=== PATIENT | female | born 1990 | race African-American/Black ===

== ENCOUNTER 2017-06-04 20:24 | Inpatient (IN) ==
--- NOTE | 2017-06-04 21:54 | Emergency Department Note ---
Arrival - Arrival Chief Complaint: Abdominal / Flank Pain Stated Complaint: VOMITING/STOMACH PAIN ED Nursing Triage Note: Pt to triage with c/o RUQ pain. Pt states when she press on it let go it hurts. Pt also c/o n/v that was green today. Mode of Arrival: Ambulatory Time Seen by Provider: 06/04/17 21:51 - History of Present Illness HPI Narrative: This is a 26-year-old female of descent with known Alla lithiasis documented in September 2016 while she was who presents with 3 days of right upper quadrant abdominal pain without fever but with vomiting and nausea. The patient has had occasional gallbladder attacks with this attack is lasted for 3 days. Allergies/Adverse Reactions: Allergies Allergy/AdvReac Type Severity Reaction Status Date / Time No Known Allergies Allergy Verified 06/04/17 20:41 Review of System - Review of System Constitutional: Absent: fever, night sweats Eyes: Absent: redness, vision change Head/Ears/Nose/Throat: Absent: epistaxis, nasal drainage Respiratory: Absent: respiratory distress, wheezing Cardiovascular: Absent: dyspnea on exertion, orthopnea Gastrointestinal: Absent: diarrhea, constipation Genitourinary female: Absent: dyspareunia, frequency Musculoskeletal: Absent: joint swelling, lower back pain Skin: Absent: change in color, change in hair/nails Neurological: Absent: numbness, paresthesias Psychiatric: Absent: suicidal thoughts, homicidal thoughts Endocrine: Absent: heat intolerance, polydipsia Hematological/Lymphatic: Absent: easy bruising, lymphadenopathy Allergic/Immunologic: Absent: urticaria, itchy eyes Medical,Surgical,& Family Hx - Medical History Psychological: History of: Depression Reproductive: No history of: Ectopic , Complication - Surgical History HEENT Surgeries: Surgical HX of: Tonsilectomy & Adenoidectomy Reproductive Surgeries: Patient denies;: Section - Family History Family History: Reports;: Family Diabetes (mom) Denies;: Family Anesthesia Reaction, Family Cancer, Family Heart Disease, Family Hypertension, Family Psychiatric Problems, Family Stroke - Social History Smoking Status: Current every day smoker Frequency of Alcohol Use: None Type of Drug Use: None Exam Vital Signs: Vital Signs Temperature 98.3 F 06/04/17 20:38 Pulse Rate 74 06/04/17 20:38 Respiratory Rate 18 06/04/17 20:38 Blood Pressure 151/80 06/04/17 20:38 O2 Sat by Pulse Oximetry 100 06/04/17 20:38 - Head Head exam: Present: atraumatic, normocephalic - Eye Eye exam: Present: PERRL, EOMI - ENT ENT exam: Present: normal exam - Neck Neck exam: Present: normal inspection - Chest Chest inspection: Present: normal inspection - Respiratory Respiratory exam: Present: normal lung sounds bilaterally - Cardiovascular Cardiovascular exam: Present: regular rate, normal rhythm - Abdominal Exam Abdominal exam: Present: other (Tenderness in the right upper quadrant without guarding or rebound) - Extremities Exam Extremities exam: Present: normal inspection, full ROM - Back Exam Back exam: Present: normal inspection, full ROM - Neurological Exam Neurological exam: Present: alert, oriented X3
[2017-06-04] MEDS ORDERED: HYDROmorphone 2 MG/1 ML VIAL IV STA (21:58)
[2017-06-04] MEDS ORDERED: ONDANSETRON 4 MG/2 ML VIAL IV STA (21:59)
[2017-06-04 22:05] LABS: Basophils % 0.9 % (0.0-0.8); Eosinophils % 0.7 % (0.00-10.9); Hematocrit 36.4 VOL% (35.7-47.0); Hemoglobin 12.4 GM/DL (12.0-16.0); Immature Granulocytes % 0.2 %; Immature Granulocytes Absolute 0.01 #; Lymphocytes # 1.3 10*3/uL (1.4-4.0); Mean Corpuscular HGB Conc 34.1 GM/DL (32-36); Mean Corpuscular Hemoglobin 29 PG (27-34); Mean Platelet Volume 10.7 FL (9.6-12.0); Monocytes # 0.3 10*3/uL (0.11-0.8); Monocytes % 7.3 % (1.7-12.7); Neutrophils # 2.7 10*3/uL (1.4-7.4); Neutrophils % 61.9 % (38.7-73.9); Platelet Count 239 T/CUMM (130-400); Red Blood Count 4.28 MC/CUMM (3.8-5.5); Red Cell Distribution Width 14.4 % (9.3-17.3); White Blood Count 4.4 T/CUMM (4-12)
[2017-06-04 22:23] LABS: Albumin 3.9 G/DL (3.4-5.0); Bilirubin,Total 1.2 MG/DL (0.2-1.0); Osmolality,Calculated 283.1 MOS/KG (273-304); Potassium 3.7 MMOL/L (3.5-5.1); Total Protein 6.7 G/DL (6.4-8.3)
[2017-06-04] MEDS ORDERED: ONDANSETRON 4 MG/2 ML VIAL ONE (22:28)
[2017-06-04] MEDS ORDERED: HYDROmorphone 2 MG/1 ML VIAL ONE (22:29)
--- NOTE | 2017-06-05 00:12 | Hospitalist History & Physical ---
Assessment and Plan (1) Acute cholecystitis Status: Acute Current Visit: Yes (2) History of cholelithiasis Status: Acute Current Visit: Yes (3) Elevated transaminase level Status: Acute Assessment and plan: We will plan for this patient will be admitting her to our service. We will trend out her transaminases. Consult GI to see if they think that she would benefit from ERCP and consult surgery. We will start her on some Levaquin and Flagyl secondary to her having fever. Repeat labs in the morning. Discussed the need for her to stop smoking. Greater than 3 minutes was spent spent on that subject. Current Visit: Yes History of Present Illness Chief complaint: Abdominal pain History of present illness: Ms. Fairbanks is a 26 year old female with past medical history significant for cholelithiasis is been experiencing abdominal pain off and on for the past several months. Apparently discovered that she had gallstones when she was . She delivered her baby in February. Ever since then she has been having these spells where she has excruciating abdominal pain that radiates to her back and then her symptoms will resolve. Patient reports that her symptoms this time started 3 days ago. The pain seem like it was worse than usual. She has been throwing up bile. She came to our hospital and found that she had had elevated transaminases I was consulted to admit her. Her CT scan and abdominal ultrasound have been reviewed and it appears that she has acute cholecystitis. Allergies Allergy/AdvReac Type Severity Reaction Status Date / Time No Known Allergies Allergy Verified 06/04/17 20:41 Medical,Surgical,& Family Hx - Medical History Psychological: History of: Depression Gastrointestinal: History of: GI Problems Reproductive: No history of: Ectopic , Complication - Surgical History HEENT Surgeries: Surgical HX of: Tonsilectomy & Adenoidectomy Reproductive Surgeries: Patient denies;: Section - Family History Family History: Reports;: Family Diabetes (mom) Denies;: Family Anesthesia Reaction, Family Cancer, Family Heart Disease, Family Hypertension, Family Psychiatric Problems, Family Stroke - Social History Smoking Status: Current every day smoker Frequency of Alcohol Use: None Type of Drug Use: None 12 point system: reviewed and no additional remarkable complaints except as stated Exam - Constitutional Vitals: Period Temp Pulse Resp BP Sys/Choi Pulse Ox Last 24 Hr 98.3 F 74 18 151/80 100 General appearance: over weight - Head Head exam: Present: normal inspection - Eye Eye exam: Present: EOMI Pupils: Present: ZION - ENT ENT exam: Present: normal exam - Neck Neck exam: Present: normal inspection - Respiratory Respiratory exam: Present: clear to auscultation bilaterally - Cardiovascular Cardiovascular exam: Present: regular rate and rhythm - GI/Abdominal GI/Abdominal exam: Present: hypoactive bowel sounds, tenderness (Diffusely but particularly right upper quadrant). Absent: rebound - Extremities Exam Extremities exam: Present: normal inspection - Back Exam Back exam: Present: normal inspection Results - Labs CBC & BMP: 06/04/17 21:14 06/04/17 21:14
[2017-06-05] MEDS: ONDANSETRON 4 MG/2 ML VIAL IV PRN ×2 (01:27→20:26)
[2017-06-05] MEDS: SODIUM CHLORIDE 0.9% 1,000 ML IV SCH ×2 (01:28→16:06)
[2017-06-05] MEDS ORDERED: LEVOFLOXACIN INJ 500 MG in PREMIX 1 EACH IV SCH (02:00)
[2017-06-05] MEDS: metroNIDAZOLE INJ 500 MG in PREMIX 1 EACH IV SCH ×2 (03:37→09:00)
[2017-06-05 04:48] LABS: Eosinophils # 0.1 10*3/uL (0.0-0.87); Eosinophils % 1.8 % (0.00-10.9); Hematocrit 35.9 VOL% (35.7-47.0); Hemoglobin 12.1 GM/DL (12.0-16.0); Immature Granulocytes % 0.3 %; Immature Granulocytes Absolute 0.01 #; Lymphocytes # 1.9 10*3/uL (1.4-4.0); Lymphocytes % 48.1 % (21.3-54.2); Mean Corpuscular HGB Conc 33.7 GM/DL (32-36); Mean Corpuscular Hemoglobin 29 PG (27-34); Mean Corpuscular Volume 85.5 FL (87-102); Monocytes # 0.3 10*3/uL (0.11-0.8); Monocytes % 8.7 % (1.7-12.7); Neutrophils # 1.6 10*3/uL (1.4-7.4); Neutrophils % 40.1 % (38.7-73.9); Platelet Count 226 T/CUMM (130-400); Red Cell Distribution Width 14.2 % (9.3-17.3); White Blood Count 3.9 T/CUMM (4-12)
[2017-06-05 05:41] LABS: Albumin 3.4 G/DL (3.4-5.0); Bilirubin,Total 2.6 MG/DL (0.2-1.0); Calcium 8.6 MG/DL (8.5-10.1); Osmolality,Calculated 280.1 MOS/KG (273-304); Total Protein 6.2 G/DL (6.4-8.3)
--- NOTE | 2017-06-05 06:35 | Ultrasound Report ---
US gallbladder Indication: Right upper quadrant abdominal pain. ULTRASOUND ABDOMEN, limited Comparison: 09/24/2016 Findings: Liver: Unremarkable Gallbladder: Multiple mobile gallstones are present. Positive sonographic Tong sign. No gallbladder wall thickening or pericholecystic fluid. Common bile duct: 3 mm Pancreas: Visualized head and body are within normal limits. Right kidney: 11.2 cm length. No mass, cyst, calcification or obstruction Impression: Cholelithiasis with secondary findings of acute cholecystitis. No biliary obstruction. PROCEDURE INTERPRETED AT [facility] DEPARTMENT OF RADIOLOGY Final Report Signed by: Martín Swain M.D.
--- NOTE | 2017-06-05 06:37 | CT Report ---
CT abdomen pelvis w con Indication: Right upper quadrant pain. Nausea and vomiting. Cholelithiasis and cholecystitis by ultrasound. CT ABDOMEN AND PELVIS WITH CONTRAST DLP: 839 mGy*cm. One or more of the following dose reduction techniques was used: Automated exposure control, adjustment of the mA and/or kV according the patient size, or use of iterative reconstruction techniques. Comparison: None Technique: Axial CT images of the abdomen and pelvis were obtained with IV contrast; Omnipaque 350, 100 cc. Oral contrast was not administered. Abdomen: Normal heart size. Clear lung bases. Calcified gallstones are present and there is minimal pericholecystic inflammation with tiny amount of fluid in the gallbladder fossa. Liver is unremarkable. No intrahepatic ductal dilatation. Spleen, pancreas, adrenal glands and kidneys are within normal limits. No bowel obstruction. No free fluid, free air or lymphadenopathy. Pelvis: Normal appendix. Uterus and adnexal structures are within normal limits by CT. Urinary bladder and rectosigmoid colon are unremarkable. No free fluid. No bone lesions. Impression: As previously diagnosed by ultrasound, cholelithiasis with secondary findings of acute cholecystitis. PROCEDURE INTERPRETED AT [facility] DEPARTMENT OF RADIOLOGY Final Report Signed by: Martín Swain M.D.
[2017-06-05] MEDS: HYDROmorphone 2 MG/1 ML VIAL IV PRN ×3 (07:15→20:26)
[2017-06-05] MEDS: PANTOPRAZOLE 40 MG VIAL IV SCH ×2 (09:01→20:21)
--- NOTE | 2017-06-05 09:43 | Gastrointestinal Consult Note ---
<Roxy Fong - Last Filed: 06/05/17 09:40> Assessment and Plan (1) Cholelithiasis with cholecystitis Status: Acute Assessment and plan: 06/05-several month history of abdominal pain with recent and delivery in February with prior diagnosis of cholelithiasis. Now presenting with severe abdominal pain, elevated LFTs, and CT and ultrasound findings noted as below. No findings of pancreatitis at this time. Plan for tentative ERCP today if schedule will allow. Will schedule this following further discussion with Dr. Smith. Further plan an addendum to followed by Dr. Smith. Current Visit: Yes History of Present Illness Chief complaint: Abdominal pain History of present illness: Ms. Fairbanks is a 26 year old female who was admitted to the hospital on last night with several month history of off-and-on abdominal pain. Patient states that Monday she was in her usual state of health however after eating supper that night she went to bed to only be awakened shortly after that with severe onset of abdominal pain in her epigastric area that radiated to her right upper quadrant and into her back. She states the pain was severe in nature however she took several Motrin and were able to lay down and go back to sleep. On Monday she awoke and tried to continue with her usual activities with the help of Motrin, however on yesterday evening the pain become even more severe and she had onset of intractable nausea and vomiting. She states that she recently gave in February however during her she was diagnosed with gallstones. She states that she has been dealing with his pain with multiple ER visits since September. This was her fourth delivery. Patient states that she has had further evaluation since her childbirth due to she was never given a referral to see a surgeon. On admission, patient was found to have elevated transaminases with somewhat unusually elevated findings of AST at 817 and ALT at 1601. Bilirubin was noted at 2.6 with alkaline phosphatase at 168. She states she did run fever up to 101 over the weekend however she is currently afebrile and without leukocytosis. Lipase is at 335. Gallbladder ultrasound on admission showed a normal common bile duct at 3 mm with cholelithiasis and secondary findings of acute cholecystitis. CT of abdomen with IV contrast showed the same findings as ultrasound. Home Medications Medication Instructions Recorded Confirmed Type No Known Home Medications [No 06/05/17 06/05/17 History Known Home Medications] Allergies Allergy/AdvReac Type Severity Reaction Status Date / Time No Known Allergies Allergy Verified 06/04/17 20:41 Medical,Surgical,& Family Hx - Medical History Psychological: History of: Depression Gastrointestinal: History of: GI Problems Reproductive: No history of: Ectopic , Complication - Surgical History HEENT Surgeries: Surgical HX of: Tonsilectomy & Adenoidectomy Reproductive Surgeries: Patient denies;: Section - Family History Family History: Reports;: Family Diabetes (mom) Denies;: Family Anesthesia Reaction, Family Cancer, Family Heart Disease, Family Hypertension, Family Psychiatric Problems, Family Stroke - Social History Smoking Status: Current every day smoker Frequency of Alcohol Use: None Type of Drug Use: None 12 point system: reviewed and no additional remarkable complaints except as stated - Constitutional Constitutional: Present: as per HPI - EENT Eyes: Present: as per HPI Ears: Present: as per HPI Nose, mouth and throat: Present: as per HPI - Cardiovascular Cardiovascular: Present: as per HPI - Respiratory Respiratory: Present: as per HPI - Gastrointestinal Gastrointestinal: Present: as per HPI, abdominal pain, nausea, vomiting - Genitourinary Genitourinary: Present: as per HPI - Musculoskeletal Musculoskeletal: Present: as per HPI - Neurological Neurological: Present: as per HPI - Psychiatric Psychiatric: Present: as per HPI - Endocrine Endocrine: Present: as per HPI - Hematologic/Lymphatic Hematologic/Lymphatic: Present: as per HPI Exam - Constitutional Vitals: Period Temp Pulse Resp BP Sys/Choi Pulse Ox Last 24 Hr 97.9 F-98.5 F 58-81 18-21 145-157/80-98 95-100 General appearance: normal weight, no acute distress - Head Head exam: Present: normal inspection, normocephalic - Eye Eye exam: Present: other (Lids and conjunctive are unremarkable). Absent: scleral icterus - ENT ENT exam: Present: normal exam, normal oropharynx - Neck Neck exam: Present: normal inspection - Respiratory Respiratory exam: Present: clear to auscultation bilaterally. Absent: rales, rhonchi, wheezes - Cardiovascular Cardiovascular exam: Present: regular rate and rhythm. Absent: diastolic murmur , JVD, systolic murmur - GI/Abdominal GI/Abdominal exam: Present: normal bowel sounds, tenderness, soft. Absent: ascites, distended, mass, organomegaly - Extremities Exam Extremities exam: Present: normal inspection, full ROM - Back Exam Back exam: Present: normal inspection - Neurological Exam Neurological exam: Present: alert, oriented X3 - Psychiatric Psychiatric exam: Present: normal affect, normal mood - Skin Skin exam: Present: normal color, warm, dry Results - Labs CBC & BMP: 06/05/17 03:48 06/05/17 03:48 Lab Results: I have reviewed the past 24 hour labs - Diagnostic Findings Procedure: CT Abdomen and Pelvis: report reviewed by me, Ultrasound: report reviewed by me <Charles Smith - Last Filed: 06/05/17 18:12> History of Present Illness Chief complaint: 3030 History of present illness: Ms. Fairbanks is a 26 year old female Exam - Constitutional Vitals: Period Temp Pulse Resp BP Sys/Choi Pulse Ox Last 24 Hr 97.6 F-98.5 F 58-81 18-21 143-157/80-98 95-100 Results - Labs CBC & BMP: 06/05/17 03:48 06/05/17 03:48
[2017-06-05] MEDS: NICOTINE 21 MG/24 HR PATCH TRANSDERM SCH (13:26)
[2017-06-05 13:32] LABS: Hepatitis A Ab IgM Quant 0.14 Index; Hepatitis A Ab IgM Result Negative (Negative); Hepatitis B Core IgM Quant < 0.05 Index; Hepatitis B Core IgM Result Negative (Negative); Hepatitis B Surface Ag Quant 0.24 Index; Hepatitis B Surface Ag Result Negative (Negative); Hepatitis C Virus Ab Quant 0.16 Index; Hepatitis C Virus Ab Result Negative (Negative)
--- NOTE | 2017-06-05 13:48 | General Surgery Consult Note ---
Assessment and Plan - Time spent with patient Time spent with patient: Greater than 30 minutes (1) Elevated transaminase level Status: Acute Assessment and plan: 26-year-old -[place] female with no reported medical history admitted by the hospitalist service with abdominal pain, nausea, and vomiting. She is found to have acute cholecystitis with cholelithiasis and elevated LFTs. GI has already seen the patient and they are planning ERCP in the morning. We will recheck her labs on Monday and if they have resolved she will undergo laparoscopic cholecystectomy by Dr. Ness on Monday. Dr. Ness has seen and examined patient and further recommendations to follow. Current Visit: Yes (2) Cholelithiasis with cholecystitis Status: Acute Current Visit: Yes History of Present Illness Chief complaint: Abdominal pain, nausea, vomiting History of present illness: Ms. Fairbanks is a 26 year old -[place] female with no medical history admitted by the hospitalists on 06/04/2017 with severe abdominal pain, nausea, and vomiting. Patient states she has been having abdominal pain off and on for the last several months and she was diagnosed with gallstones during her . She had her baby in February and has continued to have pain. This time she states it started approximately 3 days ago and has been severe in nature with recent onset of intractable nausea and vomiting. Patient states it started as epigastric pain that radiated to the right upper quadrant and her back. She denies headache, dysphagia, chest pain, shortness of breath, constipation or diarrhea or lower extremity edema. Upon admission she was found to have elevated LFTs. This morning they are higher with total bilirubin of 2.6, AST 817, ALT 1601, alkaline phosphatase at 168. CT of the abdomen and pelvis show calcified gallstones with pericholecystic inflammation but no intrahepatic ductal dilation. Gallbladder ultrasound shows cholelithiasis with acute cholecystitis and no biliary obstruction. Due to patient's rising LFTs GI has been consulted and they are planning to do ERCP in the morning. Dr. Ness was consulted for cholecystectomy. Home Medications Medication Instructions Recorded Confirmed Type No Known Home Medications [No 06/05/17 06/05/17 History Known Home Medications] Allergies Allergy/AdvReac Type Severity Reaction Status Date / Time No Known Allergies Allergy Verified 06/04/17 20:41 Medical,Surgical,& Family Hx - Medical History Psychological: History of: Depression Gastrointestinal: History of: GI Problems Reproductive: No history of: Ectopic , Complication - Surgical History HEENT Surgeries: Surgical HX of: Tonsilectomy & Adenoidectomy Reproductive Surgeries: Patient denies;: Section - Family History Family History: Reports;: Family Diabetes (mom) Denies;: Family Anesthesia Reaction, Family Cancer, Family Heart Disease, Family Hypertension, Family Psychiatric Problems, Family Stroke - Social History Smoking Status: Current every day smoker Frequency of Alcohol Use: None Type of Drug Use: None Review of systems: A complete 10 system review of systems was obtained and pertinent positives and negatives per HPI Exam - Constitutional Vitals: Period Temp Pulse Resp BP Sys/Choi Pulse Ox Last 24 Hr 97.6 F-98.5 F 58-81 18-21 143-157/80-98 95-100 Exam: Constitutional System: No distress. No tremulousness. Head: Normocephalic, atraumatic. Ears, Nose and Throat System: No evidence of Otitis or Mastoiditis. No epistaxis or discharge Eyes System: Pupils equal, round, and reactive. Extraocular muscles intact. Neck: Supple, without adenopathy, No jugular venous distention. No thyromegaly, neck mass, or prior surgery apparent. Respiratory System: Chest clear to auscultation. Cardiovascular System: Heart with regular rate and rhythm. No murmur. GI System: Abdomen soft, tender to palpation in right upper quadrant and epigastric region. No rebound or peritonitis. Normo active bowel sounds present. Musculoskeletal System: limbs with no pedal edema. Full distal pulses. Neurological System: No discernable sensory deficit. No aphasia Psychiatric System: Conversation is rational Results - Labs CBC & BMP: 06/05/17 03:48 06/05/17 03:48 Lab Results: I have reviewed the past 24 hour labs - Diagnostic Findings Procedure: CT Abdomen and Pelvis: report reviewed by me (Cholelithiasis with acute cholecystitis. Calcified gallstones present with pericholecystic inflammation and fluid in the gallbladder fossa), Ultrasound: report reviewed by me (Gallbladder ultrasound shows cholelithiasis with acute cholecystitis and no biliary obstruction)
[2017-06-05 13:58] LABS: Barbiturates Screen,Urine Negative (Negative); Benzodiazepines Screen,Urine Negative (Negative); Cannabinoid Screen,Urine Positive (Negative); Opiate Screen,Urine Positive (Negative); Phencyclidine Screen,Urine Negative (Negative)
--- NOTE | 2017-06-05 14:59 | EKG Report ---
Stationary ECG Study [facility] Test Date: 06/05/2017 3:00:21 PM Pat Name: KERLINE QUISPE Department: Room: 340 Gender: F Advertising Manager: LEONEL : 1990 Requested by: Connie Del Valle Order Number: [id number] Reading MD: TANESHA ESPINOZA Intervals [place] Rate: 56 P: 46 [place]: 154 QRS: 56 QRSD: 89 T: 28 QT: 445 QTc: 436 Interpretive Statements SINUS RHYTHM MODERATE T-WAVE ABNORMALITY, CONSIDER ANTERIOR ISCHEMIA Electronically Signed On 06-05-17 15:11:55 CDT by TANESHA ESPINOZA [email or web address]
--- NOTE | 2017-06-05 15:00 | Hospitalist Progress Note ---
Assessment and Plan (1) Acute cholecystitis Status: Acute Assessment and plan: start invanz, ercp tomorrow with lap augusto on Monday Current Visit: Yes (2) Elevated transaminase level Status: Acute Assessment and plan: hepatitis negative, recent , need negative preg test, SPEEDY, AMA, alpha antitrypsin and ceruloplasmin Current Visit: Yes (3) Cholelithiasis with cholecystitis Status: Acute Assessment and plan: ERCP in am and lap augusto on monday Current Visit: Yes Hospitalist: Subjective Interval history: Dr. Smith unable to do ERCP today. Was rescheduled for tomorrow. Patient will have her gallbladder removed the following day. Exam - Constitutional Vitals: Period Temp Pulse Resp BP Sys/Choi Pulse Ox Last 24 Hr 97.6 F-98.5 F 58-81 18-21 143-157/80-98 95-100 Exam: Heart Rate-[RRR] Lungs-[CTAB] GI-[+bs extremely tender in the right upper quadrant] Ext-[no edema] Neuro [Motor 5/5], [alert and oriented times 3] psych [normal mood and affect] General [no acute distress] Results - Labs CBC & BMP: 06/05/17 03:48 06/05/17 03:48 Lab Results: I have reviewed the past 24 hour labs Labs: Total bili 2.6, AST 817, ALT 1601. Urine drug screen positive for opiates and marijuana. - Diagnostic Findings Procedure: Ultrasound: report reviewed by me (Cholelithiasis with evidence of acute cholecystitis. No biliary obstruction appreciated.) Quality Measures - VTE Contraindication to Pharmacological VTE Prophylaxis: High Risk of Bleeding
[2017-06-05 16:22] LABS: Acetaminophen < 2.0 UG/ML (10-30); Salicylate < 2.8 MG/DL (2.8-20)
[2017-06-05] MEDS: amLODIPine 5 MG TABLET PO SCH (16:38)
[2017-06-05] MEDS: ERTAPENEM 1,000 MG in SODIUM CHLORIDE 0.9% 100 ML IV SCH (16:40)
[2017-06-06] MEDS: NICOTINE 21 MG/24 HR PATCH TRANSDERM SCH (08:47)
[2017-06-06] MEDS: PANTOPRAZOLE 40 MG VIAL IV SCH ×2 (08:48→20:07)
[2017-06-06] MEDS: amLODIPine 5 MG TABLET PO SCH (08:48)
[2017-06-06] MEDS ORDERED: fentaNYL 100 MCG/2 ML VIAL ONE (10:04)
[2017-06-06] MEDS ORDERED: MIDAZOLAM 2 MG/2 ML VIAL ONE (10:05)
--- NOTE | 2017-06-06 10:30 | General Surgery Progress Note ---
Assessment and Plan - Time spent with patient Time spent with patient: Less than 30 minutes (1) Elevated transaminase level Status: Acute Assessment and plan: 26-year-old -Armenian female with no reported medical history admitted by the hospitalist service with abdominal pain, nausea, and vomiting. She is found to have acute cholecystitis with cholelithiasis and elevated LFTs. GI has already seen the patient and they are planning ERCP in the morning. We will recheck her labs on Monday and if they have resolved she will undergo laparoscopic cholecystectomy by Dr. Ness on Monday. Dr. Ness has seen and examined patient and further recommendations to follow. 06/06/2017 patient is for ERCP this morning. She is still having some abdominal pain and nausea. Will recheck her labs in the morning and proceed with laparoscopic cholecystectomy by Dr. Ness if they are okay. She will be n.p.o. after midnight and she is already on antibiotics. Dr. Ness will see and examine patient and further recommendations to follow. Current Visit: Yes (2) Cholelithiasis with cholecystitis Status: Acute Current Visit: Yes Subjective Narrative: Patient still having right upper quadrant pain that radiates to her back but she states it is better than it was on admission. She tolerated her clear liquid diet yesterday but she did have some nausea. She is awaiting ERCP this morning. Exam - Constitutional Vitals: Period Temp Pulse Resp BP Sys/Choi Pulse Ox Last 24 Hr 97.6 F-99.1 F 59-78 17-20 112-149/57-95 96-100 Exam: 26-year-old -Armenian female, no acute distress, alert and oriented Chest clear CV regular rate and rhythm Abdomen soft, TTP RUQ Extremities no edema Results - Labs CBC & BMP: 06/05/17 03:48 06/05/17 03:48 Lab Results: I have reviewed the past 24 hour labs Labs: Patient had opiates and marijuana in her urine drug screen Quality Measures - VTE Contraindication to Pharmacological VTE Prophylaxis: High Risk of Bleeding
[2017-06-06] MEDS ORDERED: DEXAMETHASONE 10 MG/1 ML VIAL ONE (10:50)
[2017-06-06] MEDS ORDERED: PROPOFOL 200 MG/20 ML VIAL IV ONE (10:50)
[2017-06-06] MEDS ORDERED: GLYCOPYRROLATE 0.4 MG/2 ML VIAL ONE (10:50)
[2017-06-06] MEDS ORDERED: ROCURONIUM 100 MG/10 ML VIAL IV ONE (10:50)
[2017-06-06] MEDS ORDERED: NEOSTIGMINE 10 MG/10 ML VIAL ONE (10:50)
[2017-06-06] MEDS ORDERED: ONDANSETRON 4 MG/2 ML VIAL ONE (10:50)
[2017-06-06] MEDS ORDERED: LIDOCAINE 2% 5 ML VIAL ONE (10:50)
--- NOTE | 2017-06-06 11:50 | Anesthesia Post-Op ---
Anesthesia Post OP - Post Ansesthetic Evaluation Patient seen in post op: Yes Resp: within normal limits CV: within normal limits Mental: within normal limits Temp: within normal limits [id number]: within normal limits Nausea and Vomiting: within normal limits Pain: within normal limits
--- NOTE | 2017-06-06 13:16 | Fluoroscopy Report ---
[place] ERCP Indication: Gallstones. ERCP: Fluoroscopy time 43 seconds. A captured images. Retrograde injection of the pancreatic and bile ducts show no filling defects, dilatation or strictures. Cystic duct is widely patent. Contrast extends into the gallbladder lumen which demonstrates multiple filling defects consistent with cholelithiasis. Impression: Cholelithiasis of the gallbladder. Otherwise negative ERCP. PROCEDURE INTERPRETED AT [facility] DEPARTMENT OF RADIOLOGY Final Report Signed by: Martín Swain M.D.
[2017-06-06] MEDS ORDERED: SEVOFLURANE 1 UNIT/15 MINUTE INH ONE (15:00)
--- NOTE | 2017-06-06 15:30 | Hospitalist Progress Note ---
Assessment and Plan (1) Acute cholecystitis Status: Acute Assessment and plan: start invanz, ercp done today, lap augusto on Monday Current Visit: Yes (2) Elevated transaminase level Status: Acute Assessment and plan: hepatitis negative, recent , liver profile, amparo less than 1:160 Current Visit: Yes (3) Cholelithiasis with cholecystitis Status: Acute Assessment and plan: ERCP today and lap augusto on monday Current Visit: Yes Hospitalist: Subjective Interval history: Patient is sleeping on her stomach today which is a good sign. Her dad was at bedside and we talked to him briefly about our plan. Exam - Constitutional Vitals: Period Temp Pulse Resp BP Sys/Choi Pulse Ox Last 24 Hr 97.6 F-99.1 F 59-96 16-20 106-149/49-95 96-100 Exam: Heart Rate-[RRR] Lungs-[CTAB] GI-[+bs tender in right upper quadrant] Ext-[no edema] Neuro [Motor 5/5], [alert and oriented times 3] psych [normal mood and affect] General [no acute distress] Results - Labs CBC & BMP: 06/05/17 03:48 06/05/17 03:48 Lab Results: I have reviewed the past 24 hour labs Quality Measures - VTE Contraindication to Pharmacological VTE Prophylaxis: High Risk of Bleeding
[2017-06-06] MEDS: ERTAPENEM 1,000 MG in SODIUM CHLORIDE 0.9% 100 ML IV SCH (15:37)
[2017-06-06] MEDS: HYDROmorphone 2 MG/1 ML VIAL IV PRN (15:40)
[2017-06-06 15:54] LABS: Albumin 3.7 G/DL (3.4-5.0); Bilirubin,Direct 0.3 MG/DL (0.0-0.20); Bilirubin,Indirect 0.3 MG/DL (0.0-1.0); Bilirubin,Total 0.6 MG/DL (0.2-1.0); Total Protein 6.4 G/DL (6.4-8.3)
--- NOTE | 2017-06-06 19:37 | Operative Note ---
Date of procedure: 06/06/17 Pre-op diagnosis: Cholelithiasis with abnormal liver test and possible choledocholithiasis Procedure: This is a late entry due to computer access issue endoscopic retrograde cholangiopancreatography. 26-year-old female admitted with abdominal pain found to have gallstones and markedly abnormal transaminitis. Common bile duct has been negative by both ultrasound and CT modalities with concern over possible common duct stone remains. Risks, benefits and alternatives of ERCP have been reviewed with patient and she is agreeable to proceed. Informed symptoms obtained the patient She was sedated with general anesthesia per anesthesia protocol. Patient was placed in the prone position following intubation. The Olympus flexible duodenum scope was inserted blindly into the posterior pharynx and advanced into the esophagus. The visible esophageal stomach pylorus and duodenal mucosa appeared normal. The pylorus was normal. A sphincterotome was utilized and a common channel cannulation revealing a normal pancreatic duct throughout the head body tail the pancreas as well as a normal caliber biliary tree were identified. The cystic duct appears patent. No filling defects or strictures were noted throughout the common bile duct common hepatic duct or intrahepatic radicles. The selectively cannulate the common bile duct and again no definitive myalgias were seen. The procedure was terminated placed our procedure well she is discharged recovery in good condition. Postop diagnosis: 1. Normal endoscopic retrograde cholangiopancreatography with no evidence of biliary obstruction. Clinical pain history is suggestive of symptomatic cholelithiasis although her transaminitis is out of character for this modality. Will discuss with surgery regarding proceeding with liver biopsy initially versus cholecystectomy and liver biopsy during her operation. Currently however biochemical workup has been negative. I remain concerned this may be somehow related to previous treatment with metronidazole. Anesthesia: GETA Surgeon / Physician: Charles Smith Estimated blood loss: none Specimens: none sent Condition: stable Disposition: post procedure unit Results - Labs CBC & BMP: 06/05/17 03:48 06/05/17 03:48 Discharge Plan - Discharge Medications No Action No Known Home Medications [No Known Home Medications] - Follow Up or Referral - Forms/Instructions
[2017-06-07 06:09] LABS: Basophils % 0.7 % (0.0-0.8); Eosinophils % 0.5 % (0.00-10.9); Hematocrit 35.4 VOL% (35.7-47.0); Hemoglobin 12.1 GM/DL (12.0-16.0); Immature Granulocytes % 0.4 %; Immature Granulocytes Absolute 0.02 #; Lymphocytes % 36.4 % (21.3-54.2); Mean Corpuscular HGB Conc 34.2 GM/DL (32-36); Mean Corpuscular Hemoglobin 29 PG (27-34); Mean Corpuscular Volume 84.5 FL (87-102); Mean Platelet Volume 10.7 FL (9.6-12.0); Monocytes # 0.4 10*3/uL (0.11-0.8); Monocytes % 6.8 % (1.7-12.7); Neutrophils # 3.1 10*3/uL (1.4-7.4); Neutrophils % 55.2 % (38.7-73.9); Platelet Count 258 T/CUMM (130-400); Red Blood Count 4.19 MC/CUMM (3.8-5.5); White Blood Count 5.6 T/CUMM (4-12)
[2017-06-07 06:40] LABS: Albumin 3.5 G/DL (3.4-5.0); Bilirubin,Total 0.6 MG/DL (0.2-1.0); Calcium 8.9 MG/DL (8.5-10.1); Osmolality,Calculated 280.1 MOS/KG (273-304); Potassium 3.6 MMOL/L (3.5-5.1); Total Protein 6.3 G/DL (6.4-8.3)
--- NOTE | 2017-06-07 09:07 | Gastrointestinal Progress Note ---
<HetalRoxy George - Last Filed: 06/07/17 09:05> Assessment and Plan (1) Cholelithiasis with cholecystitis Status: Acute Assessment and plan: 06/10-ERCP findings noted. LFTs trending downward. Bilirubin .60, AST 64, ALT 756 , alk phos 146. Plan noted for cholecystectomy/liver bx tomorrow. Plan and addendum to follow by Dr Smith. 06/05-several month history of abdominal pain with recent and delivery in February with prior diagnosis of cholelithiasis. Now presenting with severe abdominal pain, elevated LFTs, and CT and ultrasound findings noted as below. No findings of pancreatitis at this time. Plan for tentative ERCP today if schedule will allow. Will schedule this following further discussion with Dr. Smith. Further plan an addendum to followed by Dr. Smith. Current Visit: Yes Gastroenterology - PN: Subj Interval history: CC: Elevated LFT Pt is seen, awake and alert, lying in bed with family at side. States she is feeling some better today. She denies any abdominal pain however is color depositing machine tender to palpation. She denies any nausea or vomiting. ERCP findings on yesterday noted. LFTs are also noted to be trending downward at this time. She is scheduled for cholecystectomy on tomorrow as well as tentative liver biopsy at that time. Abdomen is soft, tender to palpation. She is tolerating her diet at present time. ROS: Denies SOB or chest pain Exam (Progress Note) - Constitutional Vitals: Period Temp Pulse Resp BP Sys/Choi Pulse Ox Last 24 Hr 97.7 F-98.9 F 59-96 16-20 106-153/49-92 96-100 General appearance: normal weight, no acute distress - Head Head exam: Present: normal inspection, normocephalic - Eye Eye exam: Present: other (lids and conjunctiva unremarkable). Absent: scleral icterus - ENT ENT exam: Present: normal exam, normal oropharynx - Neck Neck exam: Present: normal inspection - Respiratory Respiratory exam: Present: clear to auscultation bilaterally. Absent: rales, rhonchi, wheezes - Cardiovascular Cardiovascular exam: Present: regular rate and rhythm. Absent: diastolic murmur , JVD, systolic murmur - GI/Abdominal GI/Abdominal exam: Present: normal bowel sounds, tenderness, soft. Absent: ascites, distended, mass, organomegaly - Extremities Exam Extremities exam: Present: normal inspection, full ROM - Back Exam Back exam: Present: normal inspection - Neurological Exam Neurological exam: Present: alert, oriented X3 - Psychiatric Psychiatric exam: Present: normal affect, normal mood - Skin Skin exam: Present: normal color, warm, dry Results - Labs CBC & BMP: 06/07/17 05:40 06/07/17 05:40 Lab Results: I have reviewed the past 24 hour labs <Charles Smith - Last Filed: 06/07/17 17:59> Exam (Progress Note) - Constitutional Vitals: Period Temp Pulse Resp BP Sys/Choi Pulse Ox Last 24 Hr 97.8 F-98.9 F 59-72 16-20 130-153/69-92 96-100 Results - Labs CBC & BMP: 06/07/17 05:40 06/07/17 05:40
[2017-06-07] MEDS: amLODIPine 5 MG TABLET PO SCH (09:47)
[2017-06-07] MEDS: PANTOPRAZOLE 40 MG VIAL IV SCH ×2 (09:48→21:20)
[2017-06-07] MEDS: HYDROmorphone 2 MG/1 ML VIAL IV PRN ×2 (09:59→21:19)
[2017-06-07] MEDS: NICOTINE 21 MG/24 HR PATCH TRANSDERM SCH (10:05)
--- NOTE | 2017-06-07 10:44 | ECHO Report ---
Flory Fairbanks Exam Date: 06/06/2017 08:14 Referring Physician: Technologist: Luna Wei Age: 26 Ht (in): 63 Wt (lb): 158 Gender: F Exam Location: [facility] Echo Indications: Acute cholecystitis, Smoker, Shortness of breath BP: 143 / 88 HR: 57 Rhythm: Sinus Technical Quality: IMPRESSIONS Normal chamber sizes Normal LV systolic function with ejection fraction estimated 65% without segmental wall motion normality Trace tricuspid regurgitation with RVSP estimated be 24 mmHg plus RAP Normal study MEASUREMENTS (Male / Female) Normal Values 2D ECHO LV Diastolic Diameter PLAX 4.3 cm 4.2 - 5.9 / 3.9 - 5.3 cm LV Systolic Diameter PLAX 2.3 cm LV Fractional Shortening PLAX 46.8 % IVS Diastolic Thickness 1.0 cm 0.6 - 1.0 / 0.6 - 0.9 cm LVPW Diastolic Thickness 1.0 cm 0.6 - 1.0 / 0.6 - 0.9 cm RV Internal Dim ED PLAX 3.5 cm Aortic Root Diameter 2.4 cm LA Systolic Diameter LX 2.6 cm 3.0 - 4.0 / 2.7 - 3.8 cm DOPPLER TR Peak Velocity 244.0 cm/s TR Peak Gradient 23.8 mmHg FINDINGS Left Ventricle Normal left ventricular cavity size. Normal left ventricular wall thickness. Left ventricular ejection fraction is estimated at 65 %. Right Ventricle The right ventricle is normal in size and function. Right Atrium The right atrium is normal in size. Left Atrium The left atrium is normal in size. Mitral Valve Morphologically normal mitral valve. Trace mitral valve regurgitation. Aortic Valve Morphologically normal aortic valve without significant sclerosis or stenosis. There is no aortic regurgitation. Tricuspid Valve Morphologically normal tricuspid valve. Trace tricuspid valve regurgitation. Tricuspid regurgitation velocities suggest a PAP of 34 mmHg. Pulmonic Valve Morphologically normal pulmonic valve. Mild pulmonary valve regurgitation. Pericardium Normal pericardium without effusion. Aorta Normal ascending aorta dimension. Bry Peres (Electronically Signed) Final Date: 07 June 2017 10:43
--- NOTE | 2017-06-07 13:17 | Hospitalist Progress Note ---
Assessment and Plan (1) Cholelithiasis with cholecystitis Status: Acute Assessment and plan: cont invanz, ercp negative, lap augusto on , no longer feels she has acute cholecystitis Current Visit: Yes (2) Elevated transaminase level Status: Acute Assessment and plan: improving without intervention, labs pending, may be due to flagyl, liver biopsy in am Current Visit: Yes Hospitalist: Subjective Interval history: Spoke with Dr. Ness about case today appreciated everybody's help. Dr. Smith feels that her elevated liver enzymes may be due to Flagyl. Her liver enzymes have improved today. Patient is still feeling like she wants her gallbladder out even though we do not feel the reason why her liver enzymes are elevated. Her ERCP yesterday was negative for stones. Dr. Ness we will remove her gallbladder tomorrow and do a liver biopsy which will be helpful in narrowing down the etiology of her liver abnormalities. Exam - Constitutional Vitals: Period Temp Pulse Resp BP Sys/Choi Pulse Ox Last 24 Hr 97.8 F-98.9 F 59-77 18-20 130-153/72-92 97-100 Exam: Heart Rate-[RRR] Lungs-[CTAB] GI-[+bs less tender in right upper quadrant] Ext-[no edema] Neuro [Motor 5/5], [alert and oriented times 3] psych [normal mood and affect] General [no acute distress] Results - Labs CBC & BMP: 06/07/17 05:40 06/07/17 05:40 Lab Results: I have reviewed the past 24 hour labs Labs: AST is down to 61 and ALT is down to 756 with alk phos at 146 and total bili is 0.6. Quality Measures - VTE Contraindication to Pharmacological VTE Prophylaxis: High Risk of Bleeding
--- NOTE | 2017-06-07 13:50 | General Surgery Progress Note ---
Assessment and Plan - Time spent with patient Time spent with patient: Less than 30 minutes (1) Elevated transaminase level Status: Acute Assessment and plan: 26-year-old -[place] female with no reported medical history admitted by the hospitalist service with abdominal pain, nausea, and vomiting. She is found to have acute cholecystitis with cholelithiasis and elevated LFTs. GI has already seen the patient and they are planning ERCP in the morning. We will recheck her labs on Monday and if they have resolved she will undergo laparoscopic cholecystectomy by Dr. Ness on Monday. Dr. Ness has seen and examined patient and further recommendations to follow. 06/06/2017 patient is for ERCP this morning. She is still having some abdominal pain and nausea. Will recheck her labs in the morning and proceed with laparoscopic cholecystectomy by Dr. Ness if they are okay. She will be n.p.o. after midnight and she is already on antibiotics. Dr. Ness will see and examine patient and further recommendations to follow. 06/07/2017 patient continues to have right upper quadrant pain and is insisting on having her gallbladder removed. She is tolerating her diet. ERCP done yesterday was normal with no evidence of biliary obstruction. Dr. Smith is concerned elevated liver enzymes may be due to metronidazole that she previously had taken. He discussed with Dr. Ness about liver biopsy. Her liver enzymes are trending down. Patient will be taken to the operating room in the morning for laparoscopic cholecystectomy and liver biopsy by Dr. Ness. Current Visit: Yes (2) Cholelithiasis with cholecystitis Status: Acute Current Visit: Yes Subjective Narrative: Patient is tolerating a diet but she continues to have pain with palpation. Patient is insisting on having her gallbladder removed. Exam - Constitutional Vitals: Period Temp Pulse Resp BP Sys/Choi Pulse Ox Last 24 Hr 97.8 F-98.9 F 59-77 18-20 130-153/72-92 97-100 Exam: 26-year-old -[place] female, no acute distress, alert and oriented Chest clear CV regular rate and rhythm Abdomen soft, TTP RUQ Extremities no edema Results - Labs CBC & BMP: 06/07/17 05:40 06/07/17 05:40 Lab Results: I have reviewed the past 24 hour labs Quality Measures - VTE Contraindication to Pharmacological VTE Prophylaxis: High Risk of Bleeding
[2017-06-07 15:51] LABS: Mitochondrial Antibody (M2) <0.1 U
[2017-06-07] MEDS: ERTAPENEM 1,000 MG in SODIUM CHLORIDE 0.9% 100 ML IV SCH (15:52)
[2017-06-07] MEDS: ONDANSETRON 4 MG/2 ML VIAL IV PRN (21:20)
--- NOTE | 2017-06-08 08:40 | Gastrointestinal Progress Note ---
<HetalRoxy George - Last Filed: 06/08/17 08:36> Assessment and Plan (1) Cholelithiasis with cholecystitis Status: Acute Assessment and plan: 06/08-for cholecystectomy and liver biopsy today. LFTs trending downward continually. Serology workup negative thus far with other labs pending. Plan an addendum to followed by Dr. Smith. 06/07-ERCP findings noted. LFTs trending downward. Bilirubin .60, AST 64, ALT 756 , alk phos 146. Plan noted for cholecystectomy/liver bx tomorrow. Plan and addendum to follow by Dr Smith. 06/05-several month history of abdominal pain with recent and delivery in February with prior diagnosis of cholelithiasis. Now presenting with severe abdominal pain, elevated LFTs, and CT and ultrasound findings noted as below. No findings of pancreatitis at this time. Plan for tentative ERCP today if schedule will allow. Will schedule this following further discussion with Dr. Smith. Further plan an addendum to followed by Dr. Smith. Current Visit: Yes Gastroenterology - PN: Subj Interval history: CC: Elevated LFTs Patient is seen, awake and alert, with family at bedside. States she rested well overnight and is having no abdominal pain this morning. She is scheduled for cholecystectomy as well as liver biopsy about midmorning with Dr. Magdaleno. Abdomen is soft, nontender. LFTs continue to trend downward at this time. Serology workup thus far remains negative. ROS: Denies shortness of breath or chest pain. Exam (Progress Note) - Constitutional Vitals: Period Temp Pulse Resp BP Sys/Choi Pulse Ox Last 24 Hr 97.7 F-99.1 F 66-74 16-20 126-159/69-92 96-100 General appearance: normal weight, no acute distress - Head Head exam: Present: normal inspection, normocephalic - Eye Eye exam: Present: other (Lids and conjunctive are unremarkable). Absent: scleral icterus - ENT ENT exam: Present: normal exam, normal oropharynx - Neck Neck exam: Present: normal inspection - Respiratory Respiratory exam: Present: clear to auscultation bilaterally. Absent: rales, rhonchi, wheezes - Cardiovascular Cardiovascular exam: Present: regular rate and rhythm. Absent: diastolic murmur , JVD, systolic murmur - GI/Abdominal GI/Abdominal exam: Present: normal bowel sounds, soft. Absent: ascites, distended, mass, organomegaly, tenderness - Extremities Exam Extremities exam: Present: normal inspection, full ROM - Back Exam Back exam: Present: normal inspection - Neurological Exam Neurological exam: Present: alert, oriented X3 - Psychiatric Psychiatric exam: Present: normal affect, normal mood - Skin Skin exam: Present: normal color, warm, dry Results - Labs CBC & BMP: 06/07/17 05:40 06/07/17 05:40 Lab Results: I have reviewed the past 24 hour labs <Charles Smith - Last Filed: 06/08/17 12:28> Exam (Progress Note) - Constitutional Vitals: Period Temp Pulse Resp BP Sys/Choi Pulse Ox Last 24 Hr 97.4 F-99.1 F 62-76 14-20 126-164/69-95 96-100 Results - Labs CBC & BMP: 06/07/17 05:40 06/07/17 05:40
[2017-06-08] MEDS: amLODIPine 5 MG TABLET PO SCH (08:43)
[2017-06-08] MEDS: NICOTINE 21 MG/24 HR PATCH TRANSDERM SCH (08:44)
[2017-06-08] MEDS: PANTOPRAZOLE 40 MG VIAL IV SCH ×2 (08:44→20:52)
[2017-06-08] MEDS ORDERED: LIDOCAINE 1%/EPI INJ 20 ML VIAL ONE (09:29)
[2017-06-08] MEDS ORDERED: TISSUE ADHESIVE 1 EACH APPLICATOR TOP ONE (09:29)
[2017-06-08 09:45] LABS: Albumin 3.5 G/DL (3.4-5.0); Bilirubin,Direct 0.1 MG/DL (0.0-0.20); Bilirubin,Indirect 0.5 MG/DL (0.0-1.0); Bilirubin,Total 0.6 MG/DL (0.2-1.0); Total Protein 6.4 G/DL (6.4-8.3)
[2017-06-08] MEDS: LACTATED RINGERS 1,000 ML IV SCH ×2 (09:47→14:00)
[2017-06-08] MEDS ORDERED: SEVOFLURANE 1 UNIT/15 MINUTE INH ONE (11:11)
[2017-06-08] MEDS ORDERED: ONDANSETRON 4 MG/2 ML VIAL ONE ×3 (11:12→12:12)
[2017-06-08] MEDS ORDERED: MIDAZOLAM 2 MG/2 ML VIAL ONE ×2 (11:12→11:55)
[2017-06-08] MEDS ORDERED: KETOROLAC 30 MG/1 ML VIAL ONE (11:12)
[2017-06-08] MEDS ORDERED: fentaNYL 100 MCG/2 ML VIAL ONE ×2 (11:12→11:55)
[2017-06-08] MEDS ORDERED: GLYCOPYRROLATE 0.4 MG/2 ML VIAL ONE (11:13)
[2017-06-08] MEDS ORDERED: ROCURONIUM 100 MG/10 ML VIAL IV ONE (11:13)
[2017-06-08] MEDS ORDERED: NEOSTIGMINE 10 MG/10 ML VIAL ONE (11:13)
[2017-06-08] MEDS ORDERED: ACETAMINOPHEN 1,000 MG/100 ML VIAL IV ONE (11:13)
[2017-06-08] MEDS ORDERED: HYDROmorphone 2 MG/1 ML VIAL ONE (11:16)
[2017-06-08] MEDS ORDERED: HYDROmorphone 2 MG/1 ML VIAL IV PRN (11:20)
[2017-06-08] MEDS ORDERED: ONDANSETRON 4 MG/2 ML VIAL IV PRN (11:20)
[2017-06-08] MEDS ORDERED: LIDOCAINE 100 MG/5 ML SYRINGE ONE (12:12)
[2017-06-08] MEDS ORDERED: PROPOFOL 200 MG/20 ML VIAL IV ONE (12:12)
--- NOTE | 2017-06-08 12:28 | Operative Note ---
Date of procedure: 06/08/17 Pre-op diagnosis: Suspected choledocholithiasis Procedure: Endoscopic retrograde cholangiopancreatography with sphincterotomy and balloon stone sweeping of the duct. 26-year-old female with gallstones abnormal liver test underwent ERCP 2 days ago with findings of no evidence of biliary ductal stones on intraoperative cholangiogram today concern regarding obstructing stone of the distal ampulla was noted. She is now for repeat ERCP for sphincterotomy and removal of suspected stone. Informed consent was obtained for the patient and her family. She was sedated with MAC anesthesia. Patient was placed in the prone position the Olympus duodenal scope was advanced under blind vision into the esophagus subsequently esophageal gastric and duodenal mucosa does appear grossly normal. The ampulla was normal. A sphincterotome was utilized and the common bile duct was deeply cannulated. No clear evidence of stone or stricture was identified. No evidence of bile leak was seen. It was elected to proceed with sphincterotomy and a 6 mm sphincterotomy was performed. Subsequently a balloon catheter was inserted over a guidewire to the region of the nery hepatis and swept 2 into the duodenum no stone fragments were seen to pass good drainage was noted. It was elected at that time to terminate the procedure. Patient was discharged recovery in good condition Postop diagnosis: 1. Choledocholithiasis status post successful sphincterotomy and balloon stone extraction. 2. Abnormal liver test etiology remains unclear await findings of liver biopsy. I will be out of town until next week call coverage if needed. Will plan to follow-up liver biopsy next week and continue to monitor liver test. We will plan for her to return to clinic to see me June 21 at 2 PM Anesthesia: MAC Surgeon / Physician: Charles Smith Estimated blood loss: none Specimens: none sent Condition: stable Disposition: post procedure unit Results - Labs CBC & BMP: 06/07/17 05:40 06/07/17 05:40 Discharge Plan - Discharge Medications No Action No Known Home Medications [No Known Home Medications] - Follow Up or Referral - Forms/Instructions
--- NOTE | 2017-06-08 12:37 | Operative Note ---
Date of procedure: 06/08/17 Pre-op diagnosis: Symptomatic cholelithiasis, abnormal liver tests Post-op diagnosis: same (Choledocholithiasis seen on intraoperative cholangiogram) Procedure: Procedure performed: #1 laparoscopic cholecystectomy with intraoperative cholangiogram #2 wedge liver biopsy Procedure in detail: After informed consent was obtained, patient was taken operating suite lies upon the operating table. After general anesthesia was induced abdomen was prepped and draped in usual sterile fashion. After procedural pause local anesthetic and strength skin and subcutaneous tissue just above the umbilicus. Incision was made and dissection carried down through skin and soft tissue. Fascia was grasped with Reno's and elevated. Fascial incision was made. Abdominal cavity was entered bluntly. Finger sweep revealed no adhesions. Chadwick trocar was placed under direct visualization. Pneumoperitoneum achieved. Camera was inserted bowel mesentery inspected found to be free of any violation. Patient was placed in reverse Trendelenburg position rotated to the left. 2 5 mm trochars placed in the right upper quadrant 11 mm subxiphoid trocar was placed all under visualization. The liver appeared fairly normal with normal color and no nodular areas. The gallbladder was identified. It did not appear to be acutely inflamed or edematous. It was grasped and elevated. Infundibulum the gallbladder retracted toward the right hip. Dissection was carried out from lateral to medial approach and the triangle of Ed. Cystic duct and cystic artery were identified and isolated. Using a critical view technique these only 2 structures entering the gallbladder. Cystic duct appeared fairly long. A clip was placed at the junction of the cystic duct neck of the ball gallbladder and partial transection made on the cystic duct. I was then able to milk several small gallstones out of the cystic duct in retrograde fashion and remove them. Cholangiocatheter was then inserted and secured in place. Intraoperative cholangiogram performed. The cystic duct common bile duct intra-and extrahepatic ducts all filled with a small filling defect identified near the distal common bile duct. Attempted to flush the duct several times but was unable to successfully dislodge or pass the stone. There was some contrast seen going around the stone into the small bowel. [place] it would be better to repeat the ERCP postop for stone extraction then to explore the duct at this point. Cholangiocatheter was removed and 2 clips placed on the cystic duct just distal to the partial transection the transection completed cystic artery was triple clipped and transected high along the gallbladder wall. Gallbladder was then removed from the gallbladder fossa using hook cautery and placed in Endo Catch sac and removed to the Chadwick trocar site. Pneumoperitoneum was reachieved in the right upper quadrant inspected. The clips inspected and found to be intact no leakage of bilious or sanguinous fluid. Metzenbaum scissors were then used to remove this small piece approximately a centimeter long of the inferior edge of the liver and it was removed and sent to pathology. The liver edge was then cauterized and there was excellent hemostasis. Right upper quadrant was irrigated and suctioned the irrigant remained clear. The trochars were removed as the abdomen desufflated. Fascia at the Chadwick trocar site closed using 0 Vicryl [id number] interrupted suture. Wounds were thoroughly irrigated and suctioned. Deep dermal layer closed with 3-0 Vicryl. Incision closed with junior. Sterile dressings applied. Patient was extubated taken recovery room in stable condition. All lap and needle counts were correct in the case Anesthesia: NADIRA Surgeon / Physician: Good Ness Estimated blood loss: other (Less than 10 cc) Specimens: other (Gallbladder, liver biopsy) Disposition: PACU Results - Labs CBC & BMP: 06/07/17 05:40 06/07/17 05:40 Discharge Plan - Discharge Medications No Action No Known Home Medications [No Known Home Medications] - Follow Up or Referral - Forms/Instructions
--- NOTE | 2017-06-08 12:42 | Fluoroscopy Report ---
[place] cholangiogram in surgery Indication: Cholecystectomy. Intraoperative cholangiogram: Fluoroscopy time 54 seconds. 75 captured images. Contrast injection of the cystic duct remnant shows no filling defects, biliary duct dilatation or strictures. However, there is a meniscus sign in the distal CBD without drainage of contrast in the small bowel. Impression: Evidence of a retained stone the distal CBD. Recommend repeat ERCP following cholecystectomy. PROCEDURE INTERPRETED AT [facility] DEPARTMENT OF RADIOLOGY Final Report Signed by: Martín Swain M.D.
--- NOTE | 2017-06-08 13:34 | Fluoroscopy Report ---
[place] ERCP w sphincterotomy Indication: Postcholecystectomy stone extraction. ERCP: Fluoroscopy time 4 minutes 7 seconds. Captured images. Findings: Sequential images show sphincterotomy and balloon sweep of the common bile duct. Final contrast injection does not show a residual filling defect in the biliary collecting system is not dilated. Impression: Balloon sweep of the CBD as described with sphincterotomy. PROCEDURE INTERPRETED AT [facility] DEPARTMENT OF RADIOLOGY Final Report Signed by: Martín Swain M.D.
--- NOTE | 2017-06-08 14:08 | Anesthesia Post-Op ---
Anesthesia Post OP - Post Ansesthetic Evaluation Patient seen in post op: Yes Resp: within normal limits CV: within normal limits Mental: within normal limits Temp: within normal limits [id number]: within normal limits Nausea and Vomiting: within normal limits Pain: within normal limits
[2017-06-08] MEDS: HYDROmorphone 2 MG/1 ML VIAL IV PRN ×2 (14:30→20:52)
[2017-06-08] MEDS: diphenhydrAMINE CAP 25 MG CAPSULE PO PRN ×2 (14:35→20:52)
--- NOTE | 2017-06-08 14:55 | Hospitalist Progress Note ---
Assessment and Plan (1) Cholelithiasis with cholecystitis Status: Acute Assessment and plan: Status post lap augusto with repeat ERCP and sphincterotomy Current Visit: Yes (2) Elevated transaminase level Status: Acute Assessment and plan: improving, liver biopsy done today. Current Visit: Yes Hospitalist: Subjective Interval history: Patient seen by our before taken to the OR. Returned from GI however that when his stones stuck in the common bile duct during surgery and had to go for ercp Exam - Constitutional Vitals: Period Temp Pulse Resp BP Sys/Choi Pulse Ox Last 24 Hr 97.4 F-99.1 F 62-76 14-20 124-164/69-95 96-100 Exam: Heart Rate-[RRR] Lungs-[CTAB] GI-[+bs mildly tender] Ext-[no edema] Neuro [Motor 5/5], [alert and oriented times 3] psych [normal mood and affect] General [no acute distress] Results - Labs CBC & BMP: 06/07/17 05:40 06/07/17 05:40 Lab Results: I have reviewed the past 24 hour labs Labs: AST down to 19 with ALT down to 516. Quality Measures - VTE Contraindication to Pharmacological VTE Prophylaxis: High Risk of Bleeding Specialty Discharge - Follow Up or Referrals Follow up with: Charles Smith MD [Physician] - 06/21/17 2:00 pm (lab work to be done at Dr. Smith office on 1:00 then you will see the doctor.) Good Ness MD [Physician] -
[2017-06-08] MEDS: ONDANSETRON 4 MG/2 ML VIAL IV PRN (20:53)
[2017-06-09] MEDS: HYDROmorphone 2 MG/1 ML VIAL IV PRN ×4 (03:13→20:02)
[2017-06-09] MEDS: diphenhydrAMINE CAP 25 MG CAPSULE PO PRN ×4 (03:13→20:02)
[2017-06-09] MEDS: ONDANSETRON 4 MG/2 ML VIAL IV PRN ×2 (03:13→20:02)
[2017-06-09 06:30] LABS: Albumin 3.3 G/DL (3.4-5.0); Bilirubin,Direct 0.2 MG/DL (0.0-0.20); Bilirubin,Indirect 0.7 MG/DL (0.0-1.0); Bilirubin,Total 0.9 MG/DL (0.2-1.0); Total Protein 5.8 G/DL (6.4-8.3)
[2017-06-09] MEDS: amLODIPine 5 MG TABLET PO SCH (08:58)
[2017-06-09] MEDS: PANTOPRAZOLE 40 MG VIAL IV SCH ×2 (08:58→20:02)
[2017-06-09] MEDS: NICOTINE 21 MG/24 HR PATCH TRANSDERM SCH (09:00)
--- NOTE | 2017-06-09 10:29 | Event Note ---
26-year-old -Turk[place] female with no medical history was admitted by the hospitalist service with abdominal pain nausea vomiting. She was found to have acute cholecystitis with cholelithiasis and elevated LFTs. ERCP was done on by Dr. Smith where he found a normal ERCP with no evidence of obstruction. Dr. Ness took her to the operating room on 06/08/2017 where he performed a laparoscopic cholecystectomy with intraoperative cholangiogram where he found a filling defect in the distal common bile duct. He also performed a wedge liver biopsy and results are pending. Patient was taken back to the GI lab by Dr. Smith where he performed another ERCP. He found no evidence of common bile duct stone but he went ahead and performed a sphincterotomy and balloon stone extraction. Today patient is ambulating in the room and she is feeling well. She is tolerating a diet and her pain is controlled. Afebrile, vital signs stable Labs today are showing a normal total bilirubin, AST elevated 646, ALT elevated 1088, ALP elevated 210 Abdomen soft, appropriately tender, incisions okay, central incision with some oozing of old blood AP--elevated liver enzymes mostly from aggravation from surgery okay for DC when okay with hospitalist and GI Follow-up with Dr. Ness in his office in 2 weeks with LFTs Discussed with Dr. Ness
--- NOTE | 2017-06-09 13:30 | Hospitalist Progress Note ---
Assessment and Plan (1) Cholelithiasis with cholecystitis Status: Acute Assessment and plan: Status post lap augusto with repeat ERCP and sphincterotomy Current Visit: Yes (2) Elevated transaminase level Status: Acute Assessment and plan: Worsen due to biopsy and surgical manipulation. If improved tomorrow will allow her to go home. Current Visit: Yes Hospitalist: Subjective Interval history: Patient says she feels okay today. I am concerned about elevation of her liver due to recent biopsy and surgical manipulation. His lungs liver enzymes are shown to improve tomorrow I will go ahead and discharge home Exam - Constitutional Vitals: Period Temp Pulse Resp BP Sys/Choi Pulse Ox Last 24 Hr 97.2 F-98.7 F 60-90 18-20 122-149/66-85 96-99 Exam: Heart Rate-[RRR] Lungs-[CTAB] GI-[+bs mildly tender] Ext-[no edema] Neuro [Motor 5/5], [alert and oriented times 3] psych [normal mood and affect] General [no acute distress] Results - Labs CBC & BMP: 06/07/17 05:40 06/07/17 05:40 Lab Results: I have reviewed the past 24 hour labs Quality Measures - VTE Contraindication to Pharmacological VTE Prophylaxis: High Risk of Bleeding Specialty Discharge - Follow Up or Referrals Follow up with: Charles Smith MD [Physician] - 06/21/17 2:00 pm (lab work to be done at Dr. Smith office on 1:00 then you will see the doctor.) Good Ness MD [Physician] - 06/21/17 9:15 am (WITH LFTs)
--- NOTE | 2017-06-09 19:21 | Pathology Report from [facility] ---
[facility] [place] ACCESSION # : [id number] PATIENT NAME : Flory Fairbanks ORDERING DR : Good Ness MD CLINICAL HX: Cholelithiasis with cholecystitis POST-OP DX: Same SPECIMEN INFO: #1 Gallbladder #2 Liver biopsy GROSS DESCRIPTION: #1 GALLBLADDER consists of a 6.9 x 3.0 cm intact pear-shaped gallbladder. The serosa is smooth, pink-shields. The wall averages 0.1 cm in thickness. The mucosa is dull pink-vega. The lumen contains hyperemic yellow- gold bile which is admixed with innumerable round yellow stones collectively measuring 3.0 x 5.0 cm. The largest stone measuring up to 0.3 cm. Carbon Cutter sections submitted in cassette #1.#2 LIVER BX consists of a 2.5 x 0.8 cm reddish-brown soft tissue fragment. Sectioned and submitted in cassette #2. DIAGNOSIS FOR FLORY [place]: #1 GALLBLADDER, CHOLECYSTECTOMY: Chronic cholecystitis; cholelithasis.#2 LIVER BIOPSY: Focal minimal portal chronic inflammation; and minimal periportal fibrosis. No evidence of steatosis, acute/ chronic hepatitis, ascending cholangitis, cholestasis, granulomas, or tumor, etc. No increased plasma cells or eosinophils seen. COLLECTED DATE: 06/08/2017 [facility] REPORT DATE: 06/09/2017 ELECTRONICALLY SIGNED BY: Brandy Rowland M.D. 06/09/2017 - 14:00:39 [place]
[2017-06-10] MEDS: diphenhydrAMINE CAP 25 MG CAPSULE PO PRN ×2 (02:48→08:56)
[2017-06-10] MEDS: HYDROmorphone 2 MG/1 ML VIAL IV PRN ×2 (02:48→08:57)
[2017-06-10 03:42] LABS: Albumin 3.4 G/DL (3.4-5.0); Bilirubin,Direct 0.2 MG/DL (0.0-0.20); Bilirubin,Indirect 0.5 MG/DL (0.0-1.0); Bilirubin,Total 0.7 MG/DL (0.2-1.0)
[2017-06-10] MEDS: amLODIPine 5 MG TABLET PO SCH (08:42)
[2017-06-10] MEDS: NICOTINE 21 MG/24 HR PATCH TRANSDERM SCH (08:42)
[2017-06-10] MEDS: PANTOPRAZOLE 40 MG VIAL IV SCH (08:42)
--- NOTE | 2017-06-10 09:23 | Event Note ---
She feels well and has no abdominal pain. Liver function tests trended upwards yesterday but her back down again today. She denies abdominal pain I see no evidence of infection bile leak or any other complication. She should be fine for discharge and can keep her follow-up in our clinic.
[2017-06-10] MEDS ORDERED: MAGNESIUM CITRATE 300 ML BOTTLE PO ONE (09:57)
--- NOTE | 2017-06-10 10:39 | Discharge Summary ---
Hospital Course - Hospital Course Hospital Course: Ms. Fairbanks is a 26 year old female with past medical history significant for cholelithiasis is been experiencing abdominal pain off and on for the past several months. Apparently discovered that she had gallstones when she was . She delivered her baby in February. Patient had elevation in her liver enzymes on admission out of proportion to what they should be for acute cholecystitis. Her total bili was 1.2. Her AST was 970. Her ALT was 1614. No evidence of hypotension on admission to suggest shock liver. Patient had recently been treated with a one-time dose of Flagyl. We consulted Dr. Smith who ordered alpha antitrypsin which was normal at 134, hepatitis series which was negative, SPEEDY was less than 1:160 and AMA was less than 0.1. Urine drug screen was positive for opiates in and marijuana. Acetaminophen and salicylate levels were normal. Ferritin level was a little low at 22. An ERCP was performed initially on June 06, 2017 which showed no evidence of stones. Patient went to the OR for lap augusto by Dr. Ness on June 08, 2017. During surgery patient was found to have a common bile duct stone had to go back for another ERCP at which time the stone was removed and a sphincterotomy was performed. During this operation the liver biopsy was performed. Without intervention her AST came down to 19 and ALT came down to 516. After the biopsy the AST went up to 646 and ALT went up to 1088-2 trauma and surgical manipulation. Today her liver enzymes are better and her AST is down to 128 and her ALT is down to 739. She is stable for discharge home today. Liver biopsy came back nonspecific inflammation no etiology specifically identified. Dr. Smith is suspicious that may be secondary to her Flagyl. She will follow- up with Dr. Ness and Dr. Smith. No heavy lifting or sports until cleared by both. Off work for another 5 days. - Time spent with patient Time with patient DS: Greater than 30 minutes (45 min) Diagnosis - Discharge Diagnosis (1) Cholelithiasis with cholecystitis Status: Acute (2) Elevated transaminase level Status: Acute Specialty Discharge - Follow Up or Referrals Follow up with: Charles Smith MD [Physician] - 06/21/17 2:00 pm (lab work to be done at Dr. Smith office on 1:00 then you will see the doctor.) Good Ness MD [Physician] - 06/21/17 9:15 am (WITH LFTs lab work at [facility] on 8:00 and then you will see the doctor.) Discharge Plan - Discharge Data Disposition: Disch To Home/Self Care Condition at Discharge: Stable Discharge Diet: regular diet Activity: resume usual activities as tolerated, no lifting, other (off work for five days, no sports or lifting till cleared by surgery ) Hygiene: no restrictions Weight Bearing at Discharge: full weight bearing - Discharge Medications New amLODIPine [Norvasc] 5 mg PO DAILY #30 tablet Famotidine Tab [Pepcid Tab] 20 mg PO BID #20 tablet HYDROcodone/ACETAMIN 7.5-325 [[place] 7.5-325] 1 tablet PO Q4H #25 tablet Promethazine Tab [Phenergan Tab] 25 mg PO Q4H #20 tablet - Follow Up or Referral Follow Up: Charles Smith MD [Physician] - 06/21/17 2:00 pm (lab work to be done at Dr. Smith office on 1:00 then you will see the doctor.) Good Ness MD [Physician] - 06/21/17 9:15 am (WITH LFTs lab work at [facility] on 8:00 and then you will see the doctor.) - Forms/Instructions Exam - Constitutional Vitals: Period Temp Pulse Resp BP Sys/Choi Pulse Ox Last 24 Hr 97.7 F-99.5 F 76-94 16-20 126-157/69-88 95-100 General appearance: normal weight, no acute distress - Respiratory Respiratory exam: Present: clear to auscultation bilaterally. Absent: rhonchi, wheezes - Cardiovascular Cardiovascular exam: Present: regular rate and rhythm. Absent: systolic murmur - GI/Abdominal GI/Abdominal exam: Present: normal bowel sounds, tenderness, soft - Extremities Exam Extremities exam: Present: normal inspection, normal capillary refill Discharge Results Procedures and tests throughout hospitalization: Pending Orders 06/05/17 12:33 [id number], [id number] Routine Ceruloplasmin Routine Mitochondrial Antibody (M2) Routine 06/11/17 04:00 Hepatic (Liver) Panel IN AM Labs on day of discharge: Labs from last 24 hours 06/10/17 02:33 Total Bilirubin 0.70 Direct Bilirubin 0.20 Indirect Bilirubin 0.5 AST 128 H ALT 739 H Alkaline Phosphatase 175 H Total Protein 6.0 L Albumin 3.4 DS: Provider Date of admission: 06/05/17 00:17 Primary care physician: Geri Spencer Attending physician on admission: Martín Dunaway MD Consults: 06/05/17 00:17 Consult to Physician [CONS] Routine Comment: Consulting Provider: Good Ness Consulting Provider Notified: Yes When should Consulting Provider be notified: Now Consult to Specialist Group: Surgery When should Consulting Provider be notified: In am Person Notified: todd called Date Notified: 06/05/17 Time Notified: 08:53 Consult to Physician [CONS] Routine Comment: Does patient need a ERCP? Consulting Provider: Charles Smith Consulting Provider Notified: Yes When should Consulting Provider be notified: Now Consult to Specialist Group: Gastroenterology When should Consulting Provider be notified: In am Person Notified: kaity called Date Notified: 06/05/17 Time Notified: 08:24 06/05/17 01:47 Consult to Pastoral Services [CONS] Routine Comment: Pastoral Screen: Request Testing Machine Operator Visit Pastoral Screen Source of Request: Patient 06/05/17 13:54 Consult to Anesthesiology [CONS] Routine Consulting Provider: Reason for Anesthesiology: Pre-op Clearance 06/07/17 08:32 Consult to Anesthesiology [CONS] Routine Consulting Provider: Reason for Anesthesiology: Pre-op Clearance Discharging clinician: Solange Castano MD
[2017-06-10 11:53] VITALS: BP 151/88
[2017-06-10 16:31] LABS: Ceruloplasmin 30 mg/dL (18-53)
== END 2017-06-10 11:50 | disposition home or self-care (01) | DRG 419 ==
LOC: N.ED 20:24 → SUATTDRO 06-05 00:17 → N.EDINP 06-05 00:17 → N.3E 06-05 00:59
PROVIDERS: ADMIT Internal Medicine; ATTEND Internal Medicine
PROC: LAPCHOL (2017-06-08 09:47)
PROC: ERCPWSP (ICD-10-PCS; 2017-06-08 13:05)